=== PATIENT | male | born 1975 | race Caucasian/White ===

== ENCOUNTER 2020-05-29 05:40 | Day surgery (SDC) | payer OTHER ==
[2020-05-29] MEDS ORDERED: LACTATED RINGERS 1,000 ML ONE (06:45)
[2020-05-29] MEDS ORDERED: BUPIVACAINE 0.5% W/EPI 30 ML VIAL INJ ONE (10:15)
[2020-05-29] MEDS ORDERED: SODIUM BICARBONATE VIAL 50 MEQ/50 ML VIAL ONE ×2 (10:53→11:13)
[2020-05-29 12:25] VITALS: BP 135/81; TEMP 98.4; O2SAT 96
--- NOTE | 2020-05-29 14:16 | OP ---
DATE OF PROCEDURE: 05/29/20 PREOPERATIVE DIAGNOSIS: 1. 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 POSTOPERATIVE DIAGNOSIS: 1. 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 PROCEDURE: 1. Complete excision of skin and deep subcutaneous tissue, 10x6 cm. 2. Tissue flaps, full thickness, 10x4 cm total, two-layered closure. SURGEON: Victoriano Martin MD ANESTHESIA: Local. FINDINGS: Large lesion which was twice as big as its actual skin base. PROCEDURE: The patient was prepped and draped in sterile fashion. The lesion did smell a bit necrotic, but it was clean after prep. Local anesthesia with bicarb was placed around the area. Elliptical incision was made removing the lesion entirely, approximately 10x6 cm of defect with grossly negative edges. There was excellent hemostasis. There was no evidence of extension beyond the subcutaneous fat. The patient tolerated the procedure well. There was slight tension on closure, so we undermined both sides approximately 2 to 3 cm back and that was enough to get it closed nicely, so interrupted 3-0 Vicryl sutures were used. Skin was closed with juan pablo. Dressing was then applied. He tolerated the procedure well and was taken to Recovery to be discharged. #[id number] [facility]
== END 2020-05-29 12:18 ==
LOC: AMB 05:40 → EDSEX 11:30 → AMB 12:18
PROVIDERS: ATTEND Surgery
DX: B07.8 Other viral warts (principal); D04.72 Carcinoma in situ of skin of left lower limb, including hip; J45.909 Unspecified asthma, uncomplicated; Z87.891 Personal history of nicotine dependence
CPT/HCPCS: 11606; J7120